=== PATIENT | female | born 1990 | race Caucasian/White ===

== ENCOUNTER 2019-12-25 15:39 | Emergency (ER) | payer OTHER ==
[~2019-12-25] VITALS: Ht 162.6 cm; Wt 54.4 kg
[2019-12-25 17:35] VITALS: BP 101/70; Ht 162.6 cm; Wt 54.4 kg
== END 2019-12-25 17:52 | disposition home or self-care (01) ==
LOC: ED 15:39
DX: R19.7 Diarrhea, unspecified (principal); K92.1 Melena; Z88.2 Allergy status to sulfonamides